=== PATIENT | female | born 2005 | race Caucasian/White ===

== ENCOUNTER 2025-05-26 12:45 | Emergency (ER) | payer BC ==
[2025-05-26] MEDS ORDERED: Ketorolac Tromethamine 30 MG (1 mL) VIAL ONE (13:58)
[2025-05-26 14:22] LABS: #Basophils Less than 0.03 10x3/uL (0.0-0.2); #Eosinophils 0.05 10x3/uL (0.0-0.5); #Monocytes 0.56 10x3/uL (0.0-1.1); #Neutrophils 6.20 10x3/uL (1.5-8.4); %Basophils 0.2 % (0.0-2.0); %Eosinophils 0.6 % (0.0-6.0); %Lymphocytes 14.9 % (18.0-47.0); %Monocytes 6.9 % (0.0-10.0); %Neutrophils 77.0 % (40.0-75.0); Hematocrit 39.1 % (34.9-44.5); Hemoglobin 13.1 g/dL (12.0-15.5); Mean Corpuscular Hemoglobin 30.1 pg (27.0-33.0); Mean Corpuscular Volume 89.9 fL (81.6-98.3); Platelet Count 237 10x3/uL (150-450); Red Blood Cell (RBC) Count 4.35 10x6/uL (3.90-5.03); White Blood Cell (WBC) Count 8.06 10x3/uL (3.5-10.5)
[2025-05-26] MEDS ORDERED: Ondansetron PF 4 MG/2 ML Vial ONE (14:32)
[2025-05-26 14:33] LABS: Glucose, Urine (Dipstick) Normal (Negative); Leukocyte Negative (Negative); Protein, Urine (Dipstick) Negative (Neg-Trace); Specific Gravity, Urine 1.015 (1.005-1.030)
[2025-05-26 14:36] LABS: ALT (SGPT) 13 U/L (Less than 34); AST (SGOT) 20 U/L (11-34); Albumin 4.5 g/dL (3.1-4.5); Alkaline Phosphatase 44 U/L (40-110); Anion Gap 11 mmol/L (10-20); BUN (Urea Nitrogen) 12 mg/dL (7.0-18.7); Bilirubin, Total 0.8 mg/dL (0.3-1.2); Calc. Creatinine Clearance 0 mL/min (70-130); Calcium 9.1 mg/dL (7.8-10.44); Carbon Dioxide 23 mmol/L (22-29); Chloride 107 mmol/L (98-107); Globulin 2.7 g/dL (2.4-3.5); Glucose 113 mg/dL (70-105); Lipase 16 U/L (8-78); Potassium 3.7 mmol/L (3.5-5.1); Sodium 137 mmol/L (136-145)
[2025-05-26 14:57] LABS: BHCG - Serum Negative (NEGATIVE); Pregs Control Background? CLEAR/WHITE (CLR/WHITE); Pregs Control Bar Appear? YES (CONTROL BAR)
[2025-05-26 15:55] LABS: CAUTI Indications for Culture Dysuria,urgency,freq; RBC/HPF 0-3 HPF (0-3); WBC/HPF 0-3 HPF (0-3)
[2025-05-26 15:56] LABS: Bacteria/HPF 2+ HPF (None Seen)
[2025-05-26 15:57] LABS: Mucous/LPF 2+ LPF (<2+)
[2025-05-26 15:59] LABS: Urine Culture Reflex No No
== END 2025-05-26 17:14 | disposition home or self-care (01) ==
LOC: CSHERS 12:45
DX: N83.202 Unspecified ovarian cyst, left side (principal); K66.1 Hemoperitoneum; F90.9 Attention-deficit hyperactivity disorder, unspecified type; Z79.899 Other long term (current) drug therapy
CPT/HCPCS: 74176; 76856; 80053; 81001; 83690; 84703; 85025; 96374; 96375; 96376; J1885; J2270; J2405